=== PATIENT | male | born 1970 | race Asian ===

== ENCOUNTER 2020-10-09 09:22 | Day surgery (SDC) | payer OTHER ==
[2020-10-09] MEDS ORDERED: Ketorolac Tromethamine 30 MG/ML VIAL ONE (10:56)
[2020-10-09] MEDS ORDERED: Neomycin-Polymyxin 1 ML AMP ONE (13:20)
[2020-10-09] MEDS ORDERED: Bupivacaine PF 0.5% 30 ML VIAL ONE (13:20)
[2020-10-09] MEDS ORDERED: Bacitracin Zinc Ointment 30 gm TUBE ONE (13:20)
[2020-10-09] MEDS ORDERED: Fentanyl 100 MCG/2 ML VIAL ONE (13:48)
[2020-10-09] MEDS ORDERED: Adacel (T-DAP) 0.5 ML SYRINGE IM ONE (14:00)
[2020-10-09] MEDS ORDERED: Glycopyrrolate 0.2 MG/ML 5 ML SYRINGE ONE (14:08)
[2020-10-09] MEDS ORDERED: Lidocaine 1% PF 5 ML VIAL ONE (14:08)
[2020-10-09] MEDS ORDERED: Dexamethasone 20 MG/5 ML VIAL ONE (14:08)
[2020-10-09] MEDS ORDERED: ePHEDrine 50 MG/ML VIAL ONE (14:08)
[2020-10-09] MEDS ORDERED: PHENYLEPHRINE-NS 100 MCG/ML 10 ML SYRINGE ONE (14:08)
[2020-10-09] MEDS ORDERED: PROPOFOL 200 MG/20 ML VIAL ONE (14:08)
[2020-10-09] MEDS ORDERED: Ondansetron PF 4 MG/2 ML Vial ONE (14:08)
== END 2020-10-09 17:42 | disposition home or self-care (01) ==
LOC: SDC 09:22
PROVIDERS: ATTEND Orthopaedic Surgery Hand Surgery
PROC: 0LQ80ZZ Repair Left Hand Tendon, Open Approach (ICD-10-PCS; principal; 2020-10-09)
DX: S66.222A Laceration of extensor muscle, fascia and tendon of left thumb at wrist and hand level, initial encounter (principal); W26.0XXA Contact with knife, initial encounter
CPT/HCPCS: 76000; 90715; J0690; J1100; J1885; J2405; J2704; J3010; J3490; S0020